=== PATIENT | female | born 1990 | race Caucasian/White ===

== ENCOUNTER 2016-04-18 10:07 | Emergency (ER) | payer BC, OTHER ==
[2016-04-18 10:44] VITALS: BP 127/84
--- NOTE | 2016-04-18 11:53 | UC ---
Throat Pain/Nasal Ramon HPI - HPI Summary HPI Summary: THREE WEE[address] OF [address] LANGE COUGH HAS BEEN RUNNING FEVER OFF AND ON. NO RASHES OR ABDOMINAL PAIN. COWORKERS HAVE BEEN DIAGNOSED WITH STREP - History of Current Complaint Chief Complaint: UCGeneralIllness Stated Complaint: SORE THROAT Time Seen by Provider: 04/18/16 10:46 Hx Obtained From: Patient Hx Last Menstrual Period: 04/10/16 Onset/Duration: Gradual Onset, Lasting Weeks, Still Present Severity: Moderate Cough: None Associated Signs & Symptoms: Positive: Hoarseness, Nasal Discharge, Fever - Epiglottits Risk Factors Epiglottis Risk Factors: Negative - Allergies/Home Medications Allergies/Adverse Reactions: Allergies Allergy/AdvReac Type Severity Reaction Status Date / Time No Known Allergies Allergy Verified 03/20/16 15:11 Home Medications: Home Medications Pseudoephedrine TAB* [Sudafed TAB*] 2 tab PO 04/18/16 [History] PMH/Surg Hx/FS Hx/Imm Hx Previously Healthy: Yes - Surgical History Surgical History: None - Family History Known Family History: Positive: None Family History: no reported cardiovascular issues in family lineage - Social History Occupation: Employed Full-time Lives: With Family Alcohol Use: None Substance Use Type: None Smoking Status (MU): Light Every Day Tobacco Smoker Amount Used/How Often: 3 cigs per day Have You Smoked in the Last Year: Yes Cessation Counseling: Patient Advised to Stop Review of Systems Constitutional: Fever Skin: Negative Eyes: Negative ENT: Sore Throat, Nasal Discharge Respiratory: Cough Cardiovascular: Negative Gastrointestinal: Negative Genitourinary: Negative Motor: Negative Neurovascular: Negative Musculoskeletal: Negative Neurological: Negative Psychological: Negative All Other Systems Reviewed And Are Negative: Yes Physical Exam Triage Information Reviewed: Yes Appearance: Well-Appearing, No Pain Distress, Well-Nourished Vital Signs: Initial Vital Signs Temp 99.3 F 04/18/16 10:40 Pulse 92 04/18/16 10:40 Resp 18 04/18/16 10:40 BP 127/84 04/18/16 10:40 Pulse Ox 100 04/18/16 10:40 Vital Signs Reviewed: Yes Eye Exam: Normal Eyes: Positive: Conjunctiva Clear ENT: Positive: Normal ENT inspection, Hearing grossly normal, Pharyngeal erythema, TMs normal, Tonsillar swelling Dental Exam: Normal Neck exam: Normal Neck: Positive: Supple, Nontender Respiratory Exam: Normal Respiratory: Positive: Chest non-tender, Lungs clear, Normal breath sounds, No respiratory distress, No accessory muscle use Cardiovascular Exam: Normal Cardiovascular: Positive: RRR, No Murmur, Pulses Normal Abdominal Exam: Normal Abdomen Description: Positive: Nontender, No Organomegaly Musculoskeletal Exam: Normal Musculoskeletal: Positive: Strength Intact, ROM Intact Neurological Exam: Normal Psychological Exam: Normal Psychological: Positive: Normal Response To Family Skin Exam: Normal Throat Pain/Nasal Course/Dx - Differential Dx/Diagnosis Differential Diagnosis/HQI/PQRI: Pharyngitis, Sinusitis, Tonsillitis, URI Provider Diagnoses: TONSILLITIS. UPPER RESPIRATORY INFECTION Discharge - Discharge Plan Condition: Stable Disposition: HOME Patient Education Materials: Tonsillitis (ED), Viral Syndrome (ED) Forms: *Work Release Referrals: [facility] PHYSICIAN REFERRAL [Outside] No Primary Care Phys,NOPCP [Primary Care Provider] -
== END 2016-04-18 11:51 | disposition home or self-care (01) ==
LOC: UCEAST 10:07
DX: J03.90 Acute tonsillitis, unspecified (principal); J06.9 Acute upper respiratory infection, unspecified; F17.210 Nicotine dependence, cigarettes, uncomplicated
CPT/HCPCS: 87651; 99211; G0463

== ENCOUNTER 2016-06-25 11:28 | Emergency (ER) | payer BC, OTHER ==
[2016-06-25 12:40] VITALS: BP 148/86
--- NOTE | 2016-06-25 14:20 | UC ---
Throat Pain/Nasal Ramon HPI - HPI Summary HPI Summary: PATIENT ARRIVES TO ED WITH CC OF SORE THROAT, DYSPHAGIA AND DIFFICULTY SWALLOWING X 2 DAYS. SHE NOTES TO STREP THROAT CONTACT AND HAS HAD IT BEFORE STATING THIS FEELS SIMILAR. SHE ENDORSES MIDSTERNAL CHEST PAIN SHE DESCRIBES A PRESSURE AND STATES THAT HAS BEEN PRESENT FOR 2 WEEKS. SHE HAS HAD A MILD COUGH. NO POST NASAL DRAINAGE, MUCOUS PRODUCTION, N/V/C/D OR LANGE. DENIES TRAVEL , OCP USE. PATIENT IS A SMOKER, BUT IS OTHERWISE HEALTHY. SHE NOTES TO SOME FEVERS WELL X2 DAYS STATING THE HIGHEST WAS 100.5. - History of Current Complaint Chief Complaint: UCRespiratory Stated Complaint: URI Time Seen by Provider: 06/25/16 13:39 Hx Obtained From: Patient Hx Last Menstrual Period: 1 WEEK AGO ?: No Onset/Duration: Sudden Onset Severity: Moderate Pain Intensity: 4 Pain Scale Used: 0-10 Numeric Cough: Nonproductive Associated Signs & Symptoms: Positive: Dysphagia, Hoarseness, Fever - Allergies/Home Medications Allergies/Adverse Reactions: Allergies Allergy/AdvReac Type Severity Reaction Status Date / Time No Known Allergies Allergy Verified 06/25/16 12:34 PMH/Surg Hx/FS Hx/Imm Hx Previously Healthy: Yes Endocrine History Of: Denies: Diabetes, Thyroid Disease Cardiovascular History Of: Denies: Cardiac Disorders, Hypertension Respiratory History Of: Denies: COPD, Asthma GI/ History Of: Denies: Ulcer - Surgical History Surgical History: None - Family History Known Family History: Positive: None Family History: no reported cardiovascular issues in family lineage - Social History Occupation: Employed Full-time Lives: With Family Alcohol Use: None Substance Use Type: None Smoking Status (MU): Light Every Day Tobacco Smoker Type: Cigarettes Amount Used/How Often: 3 cigs per day, 6+ YEARS Have You Smoked in the Last Year: Yes Review of Systems Constitutional: Fever, Fatigue Skin: Negative Eyes: Negative ENT: Sore Throat, Ear Ache, Nasal Discharge Respiratory: Cough Cardiovascular: Chest Pain Genitourinary: Negative Motor: Negative Musculoskeletal: Negative Psychological: Negative All Other Systems Reviewed And Are Negative: Yes Physical Exam Triage Information Reviewed: Yes Appearance: Well-Appearing, No Pain Distress Vital Signs: Initial Vital Signs Temp 99.0 F 06/25/16 12:35 Pulse 97 06/25/16 12:35 Resp 16 06/25/16 12:35 BP 148/86 06/25/16 12:35 Pulse Ox 100 06/25/16 12:35 Vital Signs Reviewed: Yes Eye Exam: Normal Eyes: Positive: Conjunctiva Clear ENT: Positive: Pharyngeal erythema, Tonsillar swelling Dental Exam: Normal Neck exam: Normal Neck: Positive: Supple, Nontender Respiratory: Positive: Normal breath sounds Cardiovascular Exam: Normal Cardiovascular: Positive: RRR Musculoskeletal Exam: Normal Musculoskeletal: Positive: Strength Intact Neurological Exam: Normal Psychological Exam: Normal Psychological: Positive: Normal Response To Family Skin Exam: Normal Throat Pain/Nasal Course/Dx - Course Course Of Treatment: PATIENT WAS GIVEN PREDNISONE FOR ENLARGED TONSILS, DYSPHAGIA. DENIES SOB. ENDORSES CHEST PAIN WHICH IS NOT WORSE WITH INSPIRATION. DENIES OCP USE OR TRAVEL HX. PATIENT SMOKES. WELLS CRITERIA AT 0.04%. WILL DEFER TO SEND TO ED BUT EDUCATED PATIENT. SHE AGREES IF SYMPTOMS CHANGE OR BECOME WORSE, SHE WILL GO TO ED IMMEDIATLEY. - Differential Dx/Diagnosis Differential Diagnosis/HQI/PQRI: Peritonsillar Abscess, Pharyngitis, Sinusitis, URI Provider Diagnoses: PHARYNGITIS WITH TONSILLITIS Discharge - Discharge Plan Condition: Stable Disposition: HOME Prescriptions: predniSONE TAB* [Deltasone TAB*] 50 mg PO DAILY #5 tab Patient Education Materials: Pharyngitis (ED) Referrals: No Primary Care Phys,NOPCP [Primary Care Provider] - Additional Instructions: Dx. Pharyngitis How can I manage my symptoms? Use lozenges, ice, soft foods, or popsicles to soothe your throat. Drink juice, milk shakes, or soup if your throat is too sore to eat solid food. Drinking liquids can also help prevent dehydration. Gargle with salt water. Mix teaspoon salt in a 1 cup of warm water and gargle. This may help reduce swelling in your throat. Do not smoke. Nicotine and other chemicals in cigarettes and cigars can cause lung damage and make your symptoms worse. Ask your healthcare provider for information if you currently smoke and need help to quit. E-cigarettes or smokeless tobacco still contain nicotine. Talk to your healthcare provider before you use these products. How do I prevent the spread of strep throat? Wash your hands often. Use soap and water. Wash your hands after you use the bathroom, change a child's diapers, or sneeze. Wash your hands before you prepare or eat food. Do not share food or drinks. Replace your toothbrush.
== END 2016-06-25 14:32 | disposition home or self-care (01) ==
LOC: UCEAST 11:28
DX: J03.90 Acute tonsillitis, unspecified (principal); F17.210 Nicotine dependence, cigarettes, uncomplicated
CPT/HCPCS: 87651; 99211; G0463

== ENCOUNTER 2016-11-12 23:44 | Emergency (ER) | payer BC, OTHER ==
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
[2016-11-13] MEDS ORDERED: Cyclobenzaprine TAB* 10 MG PO ONE (03:26)
[2016-11-13 03:54] VITALS: BP 124/79
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
== END 2016-11-13 03:50 | disposition home or self-care (01) ==
LOC: ED 23:44
DX: S60.221A Contusion of right hand, initial encounter (principal); M79.672 Pain in left foot; M54.2 Cervicalgia; V43.52XA Car driver injured in collision with other type car in traffic accident, initial encounter; Y93.89 Activity, other specified; Y92.89 Other specified places as the place of occurrence of the external cause; F17.210 Nicotine dependence, cigarettes, uncomplicated
CPT/HCPCS: 71020; 72110; 99283; A9270-GY